=== PATIENT | female | born 1945 | race Caucasian/White ===

== ENCOUNTER 2022-03-22 16:52 | Inpatient (IN) | payer MEDICARE, MEDICAID ==
[2022-03-22] MEDS ORDERED: Non-Formulary Item 1 EACH (Albuterol Sulfate [Albuterol Sulfate Neb] 0.63 MG/3 ML Vial.Ne NEB PRN (17:58)
[2022-03-22] MEDS ORDERED: Ipratropium Bromide 2.5 ml Neb NEB PRN (17:58)
[2022-03-22] MEDS ORDERED: Ondansetron ODT 4 MG TAB PO PRN (18:11)
[2022-03-22] MEDS: oxyCODONE 5 MG TAB PO PRN (18:36)
[2022-03-22] MEDS: Nystatin Powder 15 GM BOT TOP SCH (21:22)
[2022-03-22] MEDS: ALPRAZolam 0.25 MG TAB PO PRN (21:27)
[2022-03-22] MEDS: Ciprofloxacin 500 MG TAB PO SCH (21:28)
[2022-03-22] MEDS: Amoxicillin/Potassium Clav 875 MG TAB PO SCH (21:28)
[2022-03-22] MEDS: Budesonide 0.5 MG/2 ML NEB NEB SCH (21:28)
[2022-03-22] MEDS: Arformoterol 15 MCG/2 ML NEB NEB SCH (21:30)
[2022-03-23 05:27] LABS: #Eosinphils 0.1 thou/uL (0.0-0.7); #Lymphocytes 0.9 thou/uL (1.20-3.40); #Monocytes 0.4 thou/uL (0.11-0.59); #Neutrophils 3.5 thou/uL (1.40-6.50); %Basophils 0.8 % (0.0-1.0); %Monocytes 8.7 % (0.0-10.0); %Neutrophils 70.5 % (42.0-75.0); Hemoglobin 8.3 g/dL (12.0-16.0); Mean Corpuscular HGB CONC 32.3 g/dL (32.0-36.0); Mean Corpuscular Hemoglobin 32.9 pg (27.0-31.0); Mean Corpuscular Volume 101.7 fl (78.0-98.0); Mean Platelet Volume 7.9 fL (7.4-10.4); Platelet Count 301 10x3/uL (130-400); RBC Distribution Width 17.8 % (11.5-14.5); Red Blood Cell (RBC) Count 2.54 mill/uL (4.20-5.40)
[2022-03-23 06:13] LABS: ALT (SGPT) 101 U/L (8-55); AST (SGOT) 64 U/L (5-34); Albumin 2.3 g/dL (3.4-4.8); Alkaline Phosphatase 103 U/L (40-110); Anion Gap 12 mmol/L (10-20); BUN (Urea Nitrogen) 11 mg/dL (9.8-20.1); Bilirubin, Total 0.6 mg/dL (0.2-1.2); CK (CPK) 38 U/L (29-168); Calc. Creatinine Clearance 66 mL/min (70-130); Calcium 8.3 mg/dL (7.8-10.44); Carbon Dioxide 26 mmol/L (23-31); Chloride 103 mmol/L (98-107); Estimated GFR 90; Globulin 2.1 g/dL (2.4-3.5); Glucose 84 mg/dL (83-110); Potassium 3.8 mmol/L (3.5-5.1); Protein, Total 4.4 g/dL (5.8-8.1); Sodium 137 mmol/L (136-145)
[2022-03-23] MEDS ORDERED: FLU VACC QS2022-23(65YR UP)/PF 240 MCG/0.7 ML SYRINGE IM ONE (09:00)
[2022-03-23] MEDS: Budesonide 0.5 MG/2 ML NEB NEB SCH ×2 (09:09→19:57)
[2022-03-23] MEDS: Arformoterol 15 MCG/2 ML NEB NEB SCH ×2 (09:10→19:53)
[2022-03-23] MEDS: Ciprofloxacin 500 MG TAB PO SCH ×2 (09:34→21:55)
[2022-03-23] MEDS: Nicotine 7 MG PATCH TD SCH (09:34)
[2022-03-23] MEDS: Enoxaparin Sodium 40 MG/0.4 ML SYRINGE SC SCH (09:34)
[2022-03-23] MEDS: Amoxicillin/Potassium Clav 875 MG TAB PO SCH ×2 (09:34→21:55)
[2022-03-23] MEDS: Nystatin Powder 15 GM BOT TOP SCH ×2 (09:35→21:56)
[2022-03-23] MEDS: ALPRAZolam 0.25 MG TAB PO PRN ×3 (09:55→18:00)
[2022-03-23] MEDS: oxyCODONE 5 MG TAB PO PRN ×2 (12:40→17:31)
[2022-03-23] MEDS: Ferrous Gluconate 324 MG TAB PO SCH (21:55)
[2022-03-23 22:43] LABS: Bilirubin Negative (Negative); Blood, Urine Negative (Negative); Clarity Clear (Clear); Glucose, Urine (Dipstick) Negative (Negative); Ketone, Urine Negative (Negative); Leukocyte Moderate (Negative); Nitrite Negative (Negative); Protein, Urine (Dipstick) Negative (Neg-Trace); Urobilinogen 0.2 mg/dL (Less than 2)
[2022-03-23 23:02] LABS: Bacteria/HPF Rare-Few HPF (None Seen); RBC/HPF 0-3 HPF (0-3); Squamous Epithelial 0-3 HPF (0-3); WBC/HPF 21-50 HPF (0-3); Yeast-Budding 2+ HPF (None Seen); Yeast-Hyphae 2+ HPF (None Seen)
[2022-03-24] MEDS: oxyCODONE 5 MG TAB PO PRN ×2 (08:45→13:24)
[2022-03-24] MEDS: Budesonide 0.5 MG/2 ML NEB NEB SCH ×2 (08:48→20:25)
[2022-03-24] MEDS: Arformoterol 15 MCG/2 ML NEB NEB SCH ×2 (08:48→20:25)
[2022-03-24] MEDS: Nicotine 7 MG PATCH TD SCH (08:49)
[2022-03-24] MEDS: Enoxaparin Sodium 40 MG/0.4 ML SYRINGE SC SCH (08:49)
[2022-03-24] MEDS: Amoxicillin/Potassium Clav 875 MG TAB PO SCH ×2 (08:51→20:25)
[2022-03-24] MEDS: Ferrous Gluconate 324 MG TAB PO SCH ×2 (08:51→20:25)
[2022-03-24] MEDS: Nystatin Powder 15 GM BOT TOP SCH ×2 (08:52→20:26)
[2022-03-24] MEDS: Ciprofloxacin 500 MG TAB PO SCH ×2 (08:52→20:25)
[2022-03-25] MEDS ORDERED: Iopamidol 370 76% 125 ML VIAL FS ONE (07:47)
[2022-03-25] MEDS: oxyCODONE 5 MG TAB PO PRN ×2 (08:21→21:54)
[2022-03-25] MEDS: Enoxaparin Sodium 40 MG/0.4 ML SYRINGE SC SCH (10:14)
[2022-03-25] MEDS: Nicotine 7 MG PATCH TD SCH (10:15)
[2022-03-25] MEDS: Amoxicillin/Potassium Clav 875 MG TAB PO SCH ×2 (10:15→21:14)
[2022-03-25] MEDS: Ciprofloxacin 500 MG TAB PO SCH ×2 (10:15→21:15)
[2022-03-25] MEDS: Arformoterol 15 MCG/2 ML NEB NEB SCH ×2 (10:15→21:16)
[2022-03-25] MEDS: Ferrous Gluconate 324 MG TAB PO SCH ×2 (10:15→21:15)
[2022-03-25] MEDS: Budesonide 0.5 MG/2 ML NEB NEB SCH ×2 (10:16→21:16)
[2022-03-25] MEDS: Nystatin Powder 15 GM BOT TOP SCH ×2 (10:21→21:16)
[2022-03-25] MEDS: ALPRAZolam 0.25 MG TAB PO PRN (16:31)
[2022-03-25] MEDS ORDERED: methylPREDNISolone Sod Succ 40 MG VIAL ONE ×2 (17:29)
[2022-03-25] MEDS ORDERED: methylPREDNISolone Sod Succ 40 MG VIAL IVP SCH (17:45)
[2022-03-25 18:30] LABS: #Basophils 0.1 thou/uL (0.0-0.2); #Eosinphils 0.3 thou/uL (0.0-0.7); #Monocytes 0.7 thou/uL (0.11-0.59); #Neutrophils 3.3 thou/uL (1.40-6.50); %Basophils 1.3 % (0.0-1.0); %Eosinophils 5.9 % (0.0-10.0); %Lymphocytes 18.8 % (21.0-51.0); %Monocytes 12.2 % (0.0-10.0); %Neutrophils 61.8 % (42.0-75.0); Hemoglobin 9.9 g/dL (12.0-16.0); Mean Corpuscular HGB CONC 31.5 g/dL (32.0-36.0); Mean Corpuscular Volume 101.8 fl (78.0-98.0); Mean Platelet Volume 7.5 fL (7.4-10.4); Platelet Count 223 10x3/uL (130-400); RBC Distribution Width 16.7 % (11.5-14.5); Red Blood Cell (RBC) Count 3.08 mill/uL (4.20-5.40); White Blood Cell (WBC) Count 5.4 10x3/uL (4.8-10.8)
[2022-03-25 18:44] LABS: ALT (SGPT) 74 U/L (8-55); AST (SGOT) 60 U/L (5-34); Albumin 2.6 g/dL (3.4-4.8); Alkaline Phosphatase 99 U/L (40-110); Anion Gap 11 mmol/L (10-20); BUN (Urea Nitrogen) 8 mg/dL (9.8-20.1); Bilirubin, Total 0.6 mg/dL (0.2-1.2); Calc. Creatinine Clearance 64 mL/min (70-130); Calcium 8.3 mg/dL (7.8-10.44); Carbon Dioxide 27 mmol/L (23-31); Chloride 100 mmol/L (98-107); Estimated GFR 89; Globulin 2.3 g/dL (2.4-3.5); Glucose 128 mg/dL (83-110); Potassium 3.9 mmol/L (3.5-5.1); Protein, Total 4.9 g/dL (5.8-8.1); Sodium 134 mmol/L (136-145)
[2022-03-25 19:28] LABS: CKMB 6.7 ng/mL (0-6.6)
[2022-03-26] MEDS: oxyCODONE 5 MG TAB PO PRN ×3 (08:26→21:29)
[2022-03-26] MEDS: Budesonide 0.5 MG/2 ML NEB NEB SCH ×2 (08:28→21:30)
[2022-03-26] MEDS: Ferrous Gluconate 324 MG TAB PO SCH ×2 (08:28→21:30)
[2022-03-26] MEDS: Ciprofloxacin 500 MG TAB PO SCH ×2 (08:28→21:30)
[2022-03-26] MEDS: Nicotine 7 MG PATCH TD SCH (08:28)
[2022-03-26] MEDS: Arformoterol 15 MCG/2 ML NEB NEB SCH ×2 (08:29→21:30)
[2022-03-26] MEDS: Enoxaparin Sodium 40 MG/0.4 ML SYRINGE SC SCH (08:30)
[2022-03-26] MEDS: Amoxicillin/Potassium Clav 875 MG TAB PO SCH ×2 (08:36→21:30)
[2022-03-26] MEDS: Nystatin Powder 15 GM BOT TOP SCH ×2 (08:38→21:31)
[2022-03-26 14:01] VITALS: BMI 22.1
[2022-03-26] MEDS: ALPRAZolam 0.25 MG TAB PO PRN (14:46)
[2022-03-26] MEDS ORDERED: methylPREDNISolone Sod Succ/PF 125 MG/2 ML VIAL IVP SCH (17:00)
[2022-03-27] MEDS: Arformoterol 15 MCG/2 ML NEB NEB SCH ×2 (09:46→21:44)
[2022-03-27] MEDS: Megestrol Acetate 400 MG/10 ML UDCUP PO SCH (09:46)
[2022-03-27] MEDS: Ciprofloxacin 500 MG TAB PO SCH ×2 (09:47→21:44)
[2022-03-27] MEDS: Enoxaparin Sodium 40 MG/0.4 ML SYRINGE SC SCH (09:47)
[2022-03-27] MEDS: Nicotine 7 MG PATCH TD SCH (09:47)
[2022-03-27] MEDS: Budesonide 0.5 MG/2 ML NEB NEB SCH ×2 (09:47→21:44)
[2022-03-27] MEDS: Ferrous Gluconate 324 MG TAB PO SCH ×2 (09:47→21:45)
[2022-03-27] MEDS: Amoxicillin/Potassium Clav 875 MG TAB PO SCH ×2 (09:47→21:45)
[2022-03-27] MEDS: Nystatin Powder 15 GM BOT TOP SCH ×2 (09:48→21:45)
[2022-03-27] MEDS: oxyCODONE 5 MG TAB PO PRN ×2 (12:09→17:49)
[2022-03-27] MEDS: ALPRAZolam 0.25 MG TAB PO PRN (12:48)
[2022-03-27] MEDS ORDERED: methylPREDNISolone Sod Succ 40 MG VIAL IVP SCH (17:00)
[2022-03-28] MEDS: Budesonide 0.5 MG/2 ML NEB NEB SCH ×2 (07:59→21:38)
[2022-03-28] MEDS: Arformoterol 15 MCG/2 ML NEB NEB SCH ×2 (08:03→21:41)
[2022-03-28] MEDS: Nicotine 7 MG PATCH TD SCH (08:08)
[2022-03-28] MEDS: Megestrol Acetate 400 MG/10 ML UDCUP PO SCH (08:58)
[2022-03-28] MEDS: Nystatin Powder 15 GM BOT TOP SCH ×2 (08:58→21:43)
[2022-03-28] MEDS: Enoxaparin Sodium 40 MG/0.4 ML SYRINGE SC SCH (08:58)
[2022-03-28] MEDS: Ferrous Gluconate 324 MG TAB PO SCH ×2 (08:58→21:37)
[2022-03-28] MEDS: ALPRAZolam 0.25 MG TAB PO PRN (12:30)
[2022-03-28] MEDS: oxyCODONE 5 MG TAB PO PRN ×2 (14:21→21:37)
[2022-03-28] MEDS ORDERED: predniSONE 20 MG TAB PO SCH (17:00)
[2022-03-29] MEDS: Ferrous Gluconate 324 MG TAB PO SCH ×2 (08:36→21:46)
[2022-03-29] MEDS: Nicotine 7 MG PATCH TD SCH (08:36)
[2022-03-29] MEDS: Enoxaparin Sodium 40 MG/0.4 ML SYRINGE SC SCH (08:36)
[2022-03-29] MEDS: Megestrol Acetate 400 MG/10 ML UDCUP PO SCH (08:36)
[2022-03-29] MEDS: Arformoterol 15 MCG/2 ML NEB NEB SCH ×2 (08:37→21:46)
[2022-03-29] MEDS: Budesonide 0.5 MG/2 ML NEB NEB SCH ×2 (08:46→21:46)
[2022-03-29] MEDS: Nystatin Powder 15 GM BOT TOP SCH ×2 (08:47→21:47)
[2022-03-29] MEDS: oxyCODONE 5 MG TAB PO PRN (10:40)
[2022-03-29] MEDS ORDERED: Fluconazole 100 MG TAB PO SCH (14:00)
[2022-03-29] MEDS: Amino Acids 4.25 %/Dextrose 5% 2,000 ML IV SCH (16:02)
[2022-03-29] MEDS: ALPRAZolam 0.25 MG TAB PO PRN (18:26)
[2022-03-30] MEDS: Ferrous Gluconate 324 MG TAB PO SCH ×2 (08:54→21:19)
[2022-03-30] MEDS: Budesonide 0.5 MG/2 ML NEB NEB SCH ×2 (08:54→21:19)
[2022-03-30] MEDS: Enoxaparin Sodium 40 MG/0.4 ML SYRINGE SC SCH (08:54)
[2022-03-30] MEDS: Megestrol Acetate 400 MG/10 ML UDCUP PO SCH (08:54)
[2022-03-30] MEDS: Fluconazole 100 MG TAB PO SCH (08:54)
[2022-03-30] MEDS: Nicotine 7 MG PATCH TD SCH (08:54)
[2022-03-30] MEDS: Arformoterol 15 MCG/2 ML NEB NEB SCH ×2 (08:55→21:19)
[2022-03-30] MEDS: Nystatin Powder 15 GM BOT TOP SCH ×2 (08:55→21:20)
[2022-03-30] MEDS ORDERED: Fluconazole 100 MG TAB PO SCH (09:00)
[2022-03-30] MEDS: Amino Acids 4.25 %/Dextrose 5% 2,000 ML IV SCH (14:23)
[2022-03-30] MEDS ORDERED: Amino Acids 4.25 %/Dextrose 5% 2,000 ML IV SCH (15:00)
[2022-03-30] MEDS: ALPRAZolam 0.25 MG TAB PO PRN (19:20)
[2022-03-31] MEDS: Budesonide 0.5 MG/2 ML NEB NEB SCH ×2 (08:02→22:27)
[2022-03-31] MEDS: Arformoterol 15 MCG/2 ML NEB NEB SCH ×2 (08:03→22:17)
[2022-03-31] MEDS: Ferrous Gluconate 324 MG TAB PO SCH ×2 (08:37→22:14)
[2022-03-31] MEDS: Megestrol Acetate 400 MG/10 ML UDCUP PO SCH (08:37)
[2022-03-31] MEDS: Enoxaparin Sodium 40 MG/0.4 ML SYRINGE SC SCH (08:38)
[2022-03-31] MEDS: Nystatin Powder 15 GM BOT TOP SCH ×2 (08:38→23:02)
[2022-03-31] MEDS: Fluconazole 100 MG TAB PO SCH (08:38)
[2022-03-31] MEDS: Nicotine 7 MG PATCH TD SCH (08:38)
[2022-03-31] MEDS: oxyCODONE 5 MG TAB PO PRN (10:40)
[2022-03-31] MEDS: Amino Acids 4.25 %/Dextrose 5% 2,000 ML IV SCH (14:34)
[2022-03-31] MEDS: ALPRAZolam 0.25 MG TAB PO PRN (18:08)
[2022-04-01] MEDS: oxyCODONE 5 MG TAB PO PRN ×2 (05:25→20:07)
[2022-04-01] MEDS: ALPRAZolam 0.25 MG TAB PO PRN ×2 (05:27→20:01)
[2022-04-01] MEDS: Budesonide 0.5 MG/2 ML NEB NEB SCH ×2 (08:12→20:01)
[2022-04-01] MEDS: Arformoterol 15 MCG/2 ML NEB NEB SCH ×2 (08:12→20:01)
[2022-04-01] MEDS: Ferrous Gluconate 324 MG TAB PO SCH ×2 (08:30→20:08)
[2022-04-01] MEDS: Megestrol Acetate 400 MG/10 ML UDCUP PO SCH (08:30)
[2022-04-01] MEDS: Enoxaparin Sodium 40 MG/0.4 ML SYRINGE SC SCH (08:30)
[2022-04-01] MEDS: Nicotine 7 MG PATCH TD SCH (08:30)
[2022-04-01] MEDS: Nystatin Powder 15 GM BOT TOP SCH ×2 (08:31→20:09)
[2022-04-01] MEDS: Amino Acids 4.25 %/Dextrose 5% 2,000 ML IV SCH (13:16)
[2022-04-02] MEDS: Arformoterol 15 MCG/2 ML NEB NEB SCH ×2 (08:22→20:26)
[2022-04-02] MEDS: Budesonide 0.5 MG/2 ML NEB NEB SCH ×2 (08:22→20:26)
[2022-04-02] MEDS: Megestrol Acetate 400 MG/10 ML UDCUP PO SCH (08:24)
[2022-04-02] MEDS: Enoxaparin Sodium 40 MG/0.4 ML SYRINGE SC SCH (08:24)
[2022-04-02] MEDS: Nystatin Powder 15 GM BOT TOP SCH ×2 (08:24→20:27)
[2022-04-02] MEDS: Nicotine 7 MG PATCH TD SCH (08:24)
[2022-04-02] MEDS: Ferrous Gluconate 324 MG TAB PO SCH ×2 (08:24→20:25)
[2022-04-02] MEDS: oxyCODONE 5 MG TAB PO PRN ×3 (11:17→20:24)
[2022-04-02] MEDS: Amino Acids 4.25 %/Dextrose 5% 2,000 ML IV SCH ×2 (11:25→15:38)
[2022-04-02] MEDS: ALPRAZolam 0.25 MG TAB PO PRN (12:04)
[2022-04-03] MEDS: oxyCODONE 5 MG TAB PO PRN ×3 (02:36→22:14)
[2022-04-03] MEDS: Arformoterol 15 MCG/2 ML NEB NEB SCH ×2 (09:13→21:59)
[2022-04-03] MEDS: Ferrous Gluconate 324 MG TAB PO SCH ×2 (09:43→22:01)
[2022-04-03] MEDS: Nicotine 7 MG PATCH TD SCH (09:44)
[2022-04-03] MEDS: Megestrol Acetate 400 MG/10 ML UDCUP PO SCH (09:44)
[2022-04-03] MEDS: Budesonide 0.5 MG/2 ML NEB NEB SCH ×2 (09:54→22:00)
[2022-04-03] MEDS: Nystatin Powder 15 GM BOT TOP SCH ×2 (09:55→22:20)
[2022-04-03] MEDS: Enoxaparin Sodium 40 MG/0.4 ML SYRINGE SC SCH (09:55)
[2022-04-03] MEDS: ALPRAZolam 0.25 MG TAB PO PRN (09:58)
[2022-04-03 12:34] LABS: Hemoglobin 10.1 g/dL (12.0-16.0); Mean Corpuscular HGB CONC 32.1 g/dL (32.0-36.0); Mean Corpuscular Hemoglobin 32.3 pg (27.0-31.0); Mean Corpuscular Volume 100.5 fl (78.0-98.0); Mean Platelet Volume 7.4 fL (7.4-10.4); Platelet Count 200 10x3/uL (130-400); RBC Distribution Width 15.2 % (11.5-14.5); Red Blood Cell (RBC) Count 3.14 mill/uL (4.20-5.40); White Blood Cell (WBC) Count 6.5 10x3/uL (4.8-10.8)
[2022-04-03 12:48] LABS: ALT (SGPT) 29 U/L (8-55); AST (SGOT) 25 U/L (5-34); Albumin 2.7 g/dL (3.4-4.8); Alkaline Phosphatase 62 U/L (40-110); Anion Gap 11 mmol/L (10-20); BUN (Urea Nitrogen) 30 mg/dL (9.8-20.1); Bilirubin, Total 0.4 mg/dL (0.2-1.2); Calc. Creatinine Clearance 71 mL/min (70-130); Calcium 9.2 mg/dL (7.8-10.44); Carbon Dioxide 19 mmol/L (23-31); Chloride 108 mmol/L (98-107); Estimated GFR 91; Globulin 3.1 g/dL (2.4-3.5); Glucose 101 mg/dL (83-110); Potassium 3.9 mmol/L (3.5-5.1); Protein, Total 5.8 g/dL (5.8-8.1); Sodium 134 mmol/L (136-145)
[2022-04-03] MEDS: Amino Acids 4.25 %/Dextrose 5% 2,000 ML IV SCH ×2 (12:56→16:57)
[2022-04-04] MEDS: Megestrol Acetate 400 MG/10 ML UDCUP PO SCH (08:54)
[2022-04-04] MEDS: Ferrous Gluconate 324 MG TAB PO SCH ×3 (08:54→23:15)
[2022-04-04] MEDS: Nicotine 7 MG PATCH TD SCH (08:56)
[2022-04-04] MEDS: Enoxaparin Sodium 40 MG/0.4 ML SYRINGE SC SCH (08:56)
[2022-04-04] MEDS: Arformoterol 15 MCG/2 ML NEB NEB SCH ×2 (09:06→21:27)
[2022-04-04] MEDS: Budesonide 0.5 MG/2 ML NEB NEB SCH ×2 (09:07→21:25)
[2022-04-04] MEDS: Nystatin Powder 15 GM BOT TOP SCH ×2 (09:08→23:14)
[2022-04-04] MEDS: ALPRAZolam 0.25 MG TAB PO PRN (09:20)
[2022-04-04] MEDS: oxyCODONE 5 MG TAB PO PRN (09:21)
[2022-04-04] MEDS ORDERED: Arformoterol 15 MCG/2 ML NEB ONE (22:23)
[2022-04-05] MEDS: Enoxaparin Sodium 40 MG/0.4 ML SYRINGE SC SCH (07:50)
[2022-04-05] MEDS: oxyCODONE 5 MG TAB PO PRN (07:51)
[2022-04-05] MEDS: Megestrol Acetate 400 MG/10 ML UDCUP PO SCH ×2 (07:52→20:41)
[2022-04-05] MEDS: Budesonide 0.5 MG/2 ML NEB NEB SCH ×2 (07:52→20:41)
[2022-04-05] MEDS: Arformoterol 15 MCG/2 ML NEB NEB SCH ×2 (07:52→20:41)
[2022-04-05] MEDS: Ferrous Gluconate 324 MG TAB PO SCH ×2 (07:52→20:40)
[2022-04-05] MEDS: Nystatin Powder 15 GM BOT TOP SCH ×2 (07:53→20:44)
[2022-04-05] MEDS: Nicotine 7 MG PATCH TD SCH (07:53)
[2022-04-05] MEDS: ALPRAZolam 0.25 MG TAB PO PRN (17:38)
[2022-04-06] MEDS: Megestrol Acetate 400 MG/10 ML UDCUP PO SCH ×2 (08:13→21:02)
[2022-04-06] MEDS: Ferrous Gluconate 324 MG TAB PO SCH ×2 (08:13→21:02)
[2022-04-06] MEDS: Enoxaparin Sodium 40 MG/0.4 ML SYRINGE SC SCH (08:15)
[2022-04-06] MEDS: Nystatin Powder 15 GM BOT TOP SCH ×2 (08:15→21:04)
[2022-04-06] MEDS: Nicotine 7 MG PATCH TD SCH (08:15)
[2022-04-06] MEDS: Budesonide 0.5 MG/2 ML NEB NEB SCH ×2 (08:58→21:03)
[2022-04-06] MEDS: Arformoterol 15 MCG/2 ML NEB NEB SCH ×2 (08:58→21:03)
[2022-04-06] MEDS: oxyCODONE 5 MG TAB PO PRN ×2 (11:20→21:01)
[2022-04-06] MEDS: ALPRAZolam 0.25 MG TAB PO PRN (16:24)
[2022-04-06] MEDS: Amino Acids 4.25 %/Dextrose 5% 2,000 ML IV SCH (17:21)
[2022-04-07] MEDS: Enoxaparin Sodium 40 MG/0.4 ML SYRINGE SC SCH (08:50)
[2022-04-07] MEDS: Nicotine 7 MG PATCH TD SCH (08:50)
[2022-04-07] MEDS: Budesonide 0.5 MG/2 ML NEB NEB SCH ×2 (08:50→21:25)
[2022-04-07] MEDS: Megestrol Acetate 400 MG/10 ML UDCUP PO SCH ×2 (08:50→21:25)
[2022-04-07] MEDS: Arformoterol 15 MCG/2 ML NEB NEB SCH ×2 (08:50→20:07)
[2022-04-07] MEDS: Nystatin Powder 15 GM BOT TOP SCH ×2 (08:51→21:27)
[2022-04-07] MEDS: ALPRAZolam 0.25 MG TAB PO PRN ×2 (08:51→21:20)
[2022-04-07] MEDS: Ferrous Gluconate 324 MG TAB PO SCH ×2 (08:51→21:20)
[2022-04-07] MEDS: oxyCODONE 5 MG TAB PO PRN ×2 (10:55→21:21)
[2022-04-07] MEDS: Amino Acids 4.25 %/Dextrose 5% 2,000 ML IV SCH (16:08)
[2022-04-08] MEDS: Nicotine 7 MG PATCH TD SCH (09:25)
[2022-04-08] MEDS: Budesonide 0.5 MG/2 ML NEB NEB SCH ×2 (09:25→20:26)
[2022-04-08] MEDS: Enoxaparin Sodium 40 MG/0.4 ML SYRINGE SC SCH (09:25)
[2022-04-08] MEDS: Ferrous Gluconate 324 MG TAB PO SCH ×2 (09:25→20:26)
[2022-04-08] MEDS: Megestrol Acetate 400 MG/10 ML UDCUP PO SCH ×2 (09:25→20:25)
[2022-04-08] MEDS: Nystatin Powder 15 GM BOT TOP SCH ×2 (09:26→20:27)
[2022-04-08] MEDS: Arformoterol 15 MCG/2 ML NEB NEB SCH ×2 (09:26→20:26)
[2022-04-08] MEDS: oxyCODONE 5 MG TAB PO PRN ×3 (10:50→20:25)
[2022-04-08] MEDS: Amino Acids 4.25 %/Dextrose 5% 2,000 ML IV SCH (16:29)
[2022-04-08] MEDS: ALPRAZolam 0.25 MG TAB PO PRN (20:25)
[2022-04-09] MEDS: oxyCODONE 5 MG TAB PO PRN ×4 (03:51→18:29)
[2022-04-09] MEDS: ALPRAZolam 0.25 MG TAB PO PRN (07:53)
[2022-04-09] MEDS: Budesonide 0.5 MG/2 ML NEB NEB SCH ×2 (07:54→22:05)
[2022-04-09] MEDS: Nicotine 7 MG PATCH TD SCH (07:54)
[2022-04-09] MEDS: Enoxaparin Sodium 40 MG/0.4 ML SYRINGE SC SCH (07:55)
[2022-04-09] MEDS: Ferrous Gluconate 324 MG TAB PO SCH ×2 (07:56→22:12)
[2022-04-09] MEDS: Megestrol Acetate 400 MG/10 ML UDCUP PO SCH ×2 (07:56→22:12)
[2022-04-09] MEDS: Arformoterol 15 MCG/2 ML NEB NEB SCH ×2 (07:56→22:07)
[2022-04-09] MEDS: Nystatin Powder 15 GM BOT TOP SCH ×2 (13:00→22:12)
[2022-04-09] MEDS: Amino Acids 4.25 %/Dextrose 5% 2,000 ML IV SCH (16:52)
[2022-04-10] MEDS: oxyCODONE 5 MG TAB PO PRN ×3 (03:31→20:07)
[2022-04-10] MEDS: ALPRAZolam 0.25 MG TAB PO PRN ×2 (03:41→17:01)
[2022-04-10] MEDS: Budesonide 0.5 MG/2 ML NEB NEB SCH ×2 (08:23→20:18)
[2022-04-10] MEDS: Nicotine 7 MG PATCH TD SCH (08:24)
[2022-04-10] MEDS: Enoxaparin Sodium 40 MG/0.4 ML SYRINGE SC SCH (08:25)
[2022-04-10] MEDS: Nystatin Powder 15 GM BOT TOP SCH ×2 (08:28→20:25)
[2022-04-10] MEDS: Arformoterol 15 MCG/2 ML NEB NEB SCH ×2 (08:33→20:16)
[2022-04-10] MEDS: Megestrol Acetate 400 MG/10 ML UDCUP PO SCH ×2 (10:08→20:14)
[2022-04-10] MEDS: Ferrous Gluconate 324 MG TAB PO SCH ×2 (10:09→20:11)
[2022-04-10] MEDS: Amino Acids 4.25 %/Dextrose 5% 2,000 ML IV SCH (15:08)
[2022-04-11] MEDS: Budesonide 0.5 MG/2 ML NEB NEB SCH ×2 (07:53→20:21)
[2022-04-11] MEDS: Arformoterol 15 MCG/2 ML NEB NEB SCH ×2 (07:57→20:21)
[2022-04-11] MEDS: Ferrous Gluconate 324 MG TAB PO SCH ×2 (07:57→20:21)
[2022-04-11] MEDS: Enoxaparin Sodium 40 MG/0.4 ML SYRINGE SC SCH (07:57)
[2022-04-11] MEDS: Megestrol Acetate 400 MG/10 ML UDCUP PO SCH ×2 (07:57→20:22)
[2022-04-11] MEDS: Nicotine 7 MG PATCH TD SCH (07:57)
[2022-04-11] MEDS: Nystatin Powder 15 GM BOT TOP SCH ×2 (07:58→20:24)
[2022-04-11] MEDS: oxyCODONE 5 MG TAB PO PRN ×2 (07:58→20:22)
[2022-04-11] MEDS: Amino Acids 4.25 %/Dextrose 5% 2,000 ML IV SCH (14:35)
[2022-04-11 17:59] LABS: Bilirubin Negative (Negative); Blood, Urine Moderate (Negative); Clarity Cloudy (Clear); Glucose, Urine (Dipstick) Negative (Negative); Ketone, Urine Negative (Negative); Leukocyte Large (Negative); Nitrite Negative (Negative); Protein, Urine (Dipstick) 30 mg/dL (Neg-Trace); Specific Gravity, Urine 1.015 (1.005-1.030); Urobilinogen 0.2 mg/dL (Less than 2)
[2022-04-11 18:08] LABS: WBC/HPF Greater Than 50 HPF (0-3)
[2022-04-11 18:11] LABS: Bacteria/HPF 2+ HPF (None Seen); Squamous Epithelial 0-3 HPF (0-3); Yeast-Hyphae 2+ HPF (None Seen)
[2022-04-11 18:13] LABS: Yeast-Budding Rare HPF (None Seen)
[2022-04-11] MEDS: ALPRAZolam 0.25 MG TAB PO PRN (20:21)
[2022-04-12] MEDS: Budesonide 0.5 MG/2 ML NEB NEB SCH ×2 (07:32→20:29)
[2022-04-12] MEDS: Nicotine 7 MG PATCH TD SCH (07:32)
[2022-04-12] MEDS: Nystatin Powder 15 GM BOT TOP SCH ×2 (07:33→20:30)
[2022-04-12] MEDS: Enoxaparin Sodium 40 MG/0.4 ML SYRINGE SC SCH (07:33)
[2022-04-12] MEDS: Arformoterol 15 MCG/2 ML NEB NEB SCH ×2 (07:33→20:29)
[2022-04-12] MEDS: Megestrol Acetate 400 MG/10 ML UDCUP PO SCH ×2 (07:55→20:28)
[2022-04-12] MEDS: Ferrous Gluconate 324 MG TAB PO SCH ×2 (07:55→20:28)
[2022-04-12] MEDS: oxyCODONE 5 MG TAB PO PRN ×2 (10:39→20:20)
[2022-04-12] MEDS: Amino Acids 4.25 %/Dextrose 5% 2,000 ML IV SCH (12:52)
[2022-04-12] MEDS: ALPRAZolam 0.25 MG TAB PO PRN (20:28)
[2022-04-13] MEDS: Budesonide 0.5 MG/2 ML NEB NEB SCH ×2 (07:37→21:39)
[2022-04-13] MEDS: Nicotine 7 MG PATCH TD SCH (07:37)
[2022-04-13] MEDS: Enoxaparin Sodium 40 MG/0.4 ML SYRINGE SC SCH (07:37)
[2022-04-13] MEDS: Arformoterol 15 MCG/2 ML NEB NEB SCH ×2 (07:37→21:39)
[2022-04-13] MEDS: Nystatin Powder 15 GM BOT TOP SCH ×2 (07:38→21:40)
[2022-04-13] MEDS: Ferrous Gluconate 324 MG TAB PO SCH ×2 (08:15→21:38)
[2022-04-13] MEDS: Megestrol Acetate 400 MG/10 ML UDCUP PO SCH ×2 (08:15→21:38)
[2022-04-13] MEDS ORDERED: Docusate Sodium 100 MG/10 ML UDCUP PO PRN (08:29)
[2022-04-13] MEDS: Amino Acids 4.25 %/Dextrose 5% 2,000 ML IV SCH (12:14)
[2022-04-13] MEDS: oxyCODONE 5 MG TAB PO PRN ×2 (12:14→18:11)
[2022-04-14] MEDS: ALPRAZolam 0.25 MG TAB PO PRN ×2 (08:37→21:16)
[2022-04-14] MEDS: oxyCODONE 5 MG TAB PO PRN ×2 (08:38→13:30)
[2022-04-14] MEDS: Nystatin Powder 15 GM BOT TOP SCH ×2 (09:00→21:23)
[2022-04-14] MEDS: Nicotine 7 MG PATCH TD SCH (10:10)
[2022-04-14] MEDS: Enoxaparin Sodium 40 MG/0.4 ML SYRINGE SC SCH (10:10)
[2022-04-14] MEDS: Ferrous Gluconate 324 MG TAB PO SCH (10:10)
[2022-04-14] MEDS: Megestrol Acetate 400 MG/10 ML UDCUP PO SCH (10:10)
[2022-04-14] MEDS: Budesonide 0.5 MG/2 ML NEB NEB SCH ×2 (10:11→21:18)
[2022-04-14] MEDS: Arformoterol 15 MCG/2 ML NEB NEB SCH ×2 (10:11→21:22)
[2022-04-14] MEDS ORDERED: Bisacodyl 5 MG TAB PO PRN (17:52)
[2022-04-14] MEDS ORDERED: Acetaminophen 325 MG Suppository PR PRN (17:53)
[2022-04-14] MEDS: Morphine 10 MG/0.5 ML ORAL SYRINGE SL PRN (21:16)
[2022-04-14] MEDS ORDERED: SMX/TMP 800-160mg/20 ML UDCUP ONE (21:30)
[2022-04-14] MEDS: SMX/TMP 800-160mg/20 ML UDCUP PO SCH (21:37)
[2022-04-15] MEDS: Morphine 10 MG/0.5 ML ORAL SYRINGE SL PRN ×4 (06:18→22:31)
[2022-04-15] MEDS: ALPRAZolam 0.25 MG TAB PO PRN ×2 (07:27→22:33)
[2022-04-15] MEDS: Arformoterol 15 MCG/2 ML NEB NEB SCH ×2 (08:55→20:52)
[2022-04-15] MEDS: Budesonide 0.5 MG/2 ML NEB NEB SCH ×2 (08:55→20:46)
[2022-04-15] MEDS: SMX/TMP 800-160mg/20 ML UDCUP PO SCH ×2 (08:56→20:51)
[2022-04-15] MEDS: Nystatin Powder 15 GM BOT TOP SCH ×2 (08:56→20:52)
[2022-04-16] MEDS: Arformoterol 15 MCG/2 ML NEB NEB SCH ×2 (08:18→21:30)
[2022-04-16] MEDS: SMX/TMP 800-160mg/20 ML UDCUP PO SCH ×2 (08:20→21:30)
[2022-04-16] MEDS: Budesonide 0.5 MG/2 ML NEB NEB SCH ×2 (08:20→21:31)
[2022-04-16] MEDS: Nystatin Powder 15 GM BOT TOP SCH ×2 (08:23→21:30)
[2022-04-16] MEDS: ALPRAZolam 0.25 MG TAB PO PRN ×2 (09:46→14:06)
[2022-04-16] MEDS: Morphine 10 MG/0.5 ML ORAL SYRINGE SL PRN ×2 (13:14→21:28)
[2022-04-17] MEDS: Morphine 10 MG/0.5 ML ORAL SYRINGE SL PRN ×4 (04:05→21:59)
[2022-04-17] MEDS: Arformoterol 15 MCG/2 ML NEB NEB SCH ×2 (08:44→20:31)
[2022-04-17] MEDS: Budesonide 0.5 MG/2 ML NEB NEB SCH ×2 (08:45→20:31)
[2022-04-17] MEDS: Nystatin Powder 15 GM BOT TOP SCH ×2 (08:46→20:32)
[2022-04-17] MEDS: SMX/TMP 800-160mg/20 ML UDCUP PO SCH ×2 (08:46→20:31)
[2022-04-17] MEDS: ALPRAZolam 0.25 MG TAB PO PRN ×2 (09:22→21:59)
[2022-04-18] MEDS: Morphine 10 MG/0.5 ML ORAL SYRINGE SL PRN ×4 (04:15→21:10)
[2022-04-18] MEDS: Budesonide 0.5 MG/2 ML NEB NEB SCH ×2 (08:51→21:16)
[2022-04-18] MEDS: Arformoterol 15 MCG/2 ML NEB NEB SCH ×2 (08:52→21:14)
[2022-04-18] MEDS: SMX/TMP 800-160mg/20 ML UDCUP PO SCH ×2 (08:53→21:11)
[2022-04-18] MEDS: Nystatin Powder 15 GM BOT TOP SCH ×2 (08:53→21:17)
[2022-04-18] MEDS: ALPRAZolam 0.25 MG TAB PO PRN (21:13)
[2022-04-19] MEDS: Morphine 10 MG/0.5 ML ORAL SYRINGE SL PRN ×5 (06:07→23:28)
[2022-04-19] MEDS: Budesonide 0.5 MG/2 ML NEB NEB SCH ×2 (09:07→20:22)
[2022-04-19] MEDS: Arformoterol 15 MCG/2 ML NEB NEB SCH ×2 (09:07→20:22)
[2022-04-19] MEDS: SMX/TMP 800-160mg/20 ML UDCUP PO SCH ×2 (09:07→20:23)
[2022-04-19] MEDS: Nystatin Powder 15 GM BOT TOP SCH ×2 (09:07→20:22)
[2022-04-19] MEDS ORDERED: Morphine 10 MG/0.5 ML ORAL SYRINGE SL SCH (12:45)
[2022-04-19] MEDS: fentaNYL 50 mcg/hour Patch TD SCH (13:45)
[2022-04-20] MEDS: Morphine 10 MG/0.5 ML ORAL SYRINGE SL PRN ×2 (03:28→16:13)
[2022-04-20] MEDS: Arformoterol 15 MCG/2 ML NEB NEB SCH ×2 (08:17→20:18)
[2022-04-20] MEDS: Budesonide 0.5 MG/2 ML NEB NEB SCH ×2 (08:19→20:18)
[2022-04-20] MEDS: Nystatin Powder 15 GM BOT TOP SCH ×2 (08:20→20:19)
[2022-04-20] MEDS: SMX/TMP 800-160mg/20 ML UDCUP PO SCH ×2 (08:20→20:19)
[2022-04-20] MEDS: Lorazepam 2 MG/ML VIAL SLOW IVP PRN ×3 (08:54→22:48)
[2022-04-21] MEDS: Morphine 10 MG/0.5 ML ORAL SYRINGE SL PRN ×3 (02:35→19:40)
[2022-04-21] MEDS: Lorazepam 2 MG/ML VIAL SLOW IVP PRN ×2 (02:36→16:38)
[2022-04-21] MEDS: Budesonide 0.5 MG/2 ML NEB NEB SCH ×2 (08:33→19:57)
[2022-04-21] MEDS: Arformoterol 15 MCG/2 ML NEB NEB SCH ×2 (08:34→19:51)
[2022-04-21] MEDS: Nystatin Powder 15 GM BOT TOP SCH ×2 (08:35→21:36)
[2022-04-21] MEDS: SMX/TMP 800-160mg/20 ML UDCUP PO SCH ×2 (08:36→19:42)
[2022-04-22] MEDS: Morphine 10 MG/0.5 ML ORAL SYRINGE SL PRN (03:53)
[2022-04-22] MEDS: Budesonide 0.5 MG/2 ML NEB NEB SCH ×2 (08:47→22:27)
[2022-04-22] MEDS: Nystatin Powder 15 GM BOT TOP SCH ×2 (08:47→22:28)
[2022-04-22] MEDS: Arformoterol 15 MCG/2 ML NEB NEB SCH ×2 (08:47→22:27)
[2022-04-22] MEDS: fentaNYL 50 mcg/hour Patch TD SCH (14:35)
[2022-04-22] MEDS: Lorazepam 2 MG/ML VIAL SLOW IVP PRN ×2 (16:06→22:53)
[2022-04-23] MEDS: Morphine 10 MG/0.5 ML ORAL SYRINGE SL PRN ×2 (01:50→18:09)
[2022-04-23] MEDS: Lorazepam 2 MG/ML VIAL SLOW IVP PRN ×2 (09:53→18:14)
[2022-04-23] MEDS: Budesonide 0.5 MG/2 ML NEB NEB SCH ×2 (09:58→21:11)
[2022-04-23] MEDS: Arformoterol 15 MCG/2 ML NEB NEB SCH ×2 (09:59→21:10)
[2022-04-23] MEDS: Nystatin Powder 15 GM BOT TOP SCH ×2 (10:03→21:12)
[2022-04-24] MEDS: Arformoterol 15 MCG/2 ML NEB NEB SCH ×2 (08:59→20:02)
[2022-04-24] MEDS: Budesonide 0.5 MG/2 ML NEB NEB SCH ×2 (09:00→20:00)
[2022-04-24] MEDS: Nystatin Powder 15 GM BOT TOP SCH (09:00)
[2022-04-24] MEDS: Lorazepam 2 MG/ML VIAL SLOW IVP PRN ×2 (09:05→12:22)
[2022-04-24] MEDS ORDERED: Lorazepam 2 MG/ML VIAL ONE (12:20)
[2022-04-24] MEDS: Morphine 10 MG/0.5 ML ORAL SYRINGE SL PRN (13:39)
[2022-04-24] MEDS ORDERED: Morphine 4 MG/ML VIAL ONE (14:59)
[2022-04-24] MEDS ORDERED: Morphine 4 MG/ML VIAL SLOW IVP PRN (14:59)
[2022-04-25] MEDS: Nystatin Powder 15 GM BOT TOP SCH ×3 (08:46→20:17)
[2022-04-25] MEDS: Arformoterol 15 MCG/2 ML NEB NEB SCH ×2 (08:48→20:11)
[2022-04-25] MEDS: Budesonide 0.5 MG/2 ML NEB NEB SCH ×2 (08:48→20:08)
[2022-04-25] MEDS: fentaNYL 50 mcg/hour Patch TD SCH (14:18)
[2022-04-25] MEDS ORDERED: Lorazepam 2 MG/ML VIAL ONE (14:27)
[2022-04-25] MEDS: Lorazepam 2 MG/ML VIAL SLOW IVP PRN (14:29)
[2022-04-26] MEDS: Arformoterol 15 MCG/2 ML NEB NEB SCH ×2 (07:56→20:37)
[2022-04-26] MEDS: Morphine 10 MG/0.5 ML ORAL SYRINGE SL PRN ×3 (07:56→16:56)
[2022-04-26] MEDS: Budesonide 0.5 MG/2 ML NEB NEB SCH ×2 (07:56→20:32)
[2022-04-26] MEDS: Nystatin Powder 15 GM BOT TOP SCH ×2 (07:57→20:36)
[2022-04-26] MEDS: Lorazepam 2 MG/ML VIAL SLOW IVP PRN (12:49)
[2022-04-27 07:13] VITALS: BP 45/34; TEMP 97.6
[2022-04-27] MEDS: Arformoterol 15 MCG/2 ML NEB NEB SCH (09:17)
[2022-04-27] MEDS: Budesonide 0.5 MG/2 ML NEB NEB SCH (09:17)
[2022-04-27] MEDS: Nystatin Powder 15 GM BOT TOP SCH (09:20)
== END 2022-04-27 13:50 | disposition expired | DRG 871 ==
LOC: MADMS 18:04
PROVIDERS: ADMIT Family Medicine; ATTEND Family Medicine
PROC: 3E0336Z Introduction of Nutritional Substance into Peripheral Vein, Percutaneous Approach (ICD-10-PCS; principal; 2022-03-29)
DX: A41.9 Sepsis, unspecified organism (principal); J96.01 Acute respiratory failure with hypoxia; M72.6 Necrotizing fasciitis; R65.21 Severe sepsis with septic shock; J96.02 Acute respiratory failure with hypercapnia; K61.1 Rectal abscess; J44.1 Chronic obstructive pulmonary disease with (acute) exacerbation; E46 Unspecified protein-calorie malnutrition; Z68.1 Body mass index [BMI] 19.9 or less, adult; J90 Pleural effusion, not elsewhere classified; N39.0 Urinary tract infection, site not specified; M62.82 Rhabdomyolysis; N17.9 Acute kidney failure, unspecified; Z66 Do not resuscitate; Z51.5 Encounter for palliative care; F17.210 Nicotine dependence, cigarettes, uncomplicated; I10 Essential (primary) hypertension; E78.5 Hyperlipidemia, unspecified; F41.0 Panic disorder [episodic paroxysmal anxiety]; F51.04 Psychophysiologic insomnia; D64.9 Anemia, unspecified; L98.419 Non-pressure chronic ulcer of buttock with unspecified severity; Z20.822 Contact with and (suspected) exposure to COVID-19; Z79.51 Long term (current) use of inhaled steroids; Z79.899 Other long term (current) drug therapy; Z90.710 Acquired absence of both cervix and uterus; Z98.890 Other specified postprocedural states
CPT/HCPCS: 71045; 71275; 80053; 81001; 82550; 82553; 83880; 84484; 85025; 85027; 85379; 87077; 87086; 87186; 87811; 94640; J1650; J2060; J2270; J2920; J2930; J7512; J7620; J7626; Q9967; U0003; U0005